=== PATIENT | male | born 1980 | race Two or more races ===

== ENCOUNTER 2024-02-14 23:45 | Emergency (ER) | payer OTHER ==
[~2024-02-14] VITALS: Ht 180.3 cm; Wt 84.0 kg
[2024-02-15] MEDS ORDERED: KETOROLAC TROMETH 60MG/2ML VIAL IM ONE (00:45)
[2024-02-15] MEDS: HYDROcodone-ACET 10/325MG TAB PO ONE (00:45)
[2024-02-15] MEDS: KETOROLAC TROMETH 30 MG/ML 1ML VIAL IV ONE (01:57)
[2024-02-15 02:00] VITALS: BP 118/76; PULSE 84; RESP 21; TEMP 98.7; O2SAT 95
[2024-02-15] MEDS ORDERED: IBUP-1455 PO (02:41)
[2024-02-15] MEDS ORDERED: HYDR-4798 PO (02:41)
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
--- NOTE | 2024-02-15 04:12 | DVH ---
BILATERALRIBS RADIOGRAPHS CLINICAL HISTORY: Right-sided rib trauma Chest pain. TECHNIQUE: AP and oblique views of the right and left ribs were obtained. Comparison: None FINDINGS: There is nondisplaced fracture of the right 6th rib. The lungs are clear. There is no evidence of a p neumothorax. The surrounding soft tissues appear within normal limits. IMPRESSION: 1. Nondisplaced right 6th rib fracture.
== END 2024-02-15 03:14 | disposition home or self-care (01) ==
LOC: ER 23:45
DX: S22.31XA Fracture of one rib, right side, initial encounter for closed fracture (principal); V89.2XXA Person injured in unspecified motor-vehicle accident, traffic, initial encounter; Y93.89 Activity, other specified; Y92.89 Other specified places as the place of occurrence of the external cause; Y99.8 Other external cause status
CPT/HCPCS: 71111; 96374; 99283; J1885